=== PATIENT | female | born 1995 | race Caucasian/White ===

== ENCOUNTER 2018-04-11 11:29 | Inpatient (IN) | payer OTHER ==
[~2018-04-11] VITALS: Ht 160 cm; Wt 75.3 kg
[2018-04-11 12:02] VITALS: BP 117/67
[2018-04-11] MEDS ORDERED: RINGERS SOLUTION,LACTATED 1,000 ML IV PRN (12:16)
[2018-04-11] MEDS ORDERED: RINGERS SOLUTION,LACTATED 1,000 ML IV SCH (12:16)
[2018-04-11] MEDS ORDERED: OXYTOCIN 30 UNITS/LACT RINGERS 500 ML IV PRN (12:16)
[2018-04-11] MEDS ORDERED: CITRIC ACID/SODIUM CITRATE 30 ML SOLUTION UDCUP PO PRN (12:30)
[2018-04-11] MEDS ORDERED: METOCLOPRAMIDE HCL 5 MG/ML 2 ML VIAL IVP PRN (12:30)
[2018-04-11] MEDS ORDERED: FentaNYL CITRATE-PF 100 MCG/2 ML VIAL IVP PRN (12:30)
[2018-04-11 12:59] LABS: BASOPHILS % (AUTO) 0.3 % (0.0-2.0); EOSINOPHILS % (AUTO) 0.3 % (1.0-6.0); HEMATOCRIT 30.9 % (36-46); HEMOGLOBIN 10.5 g/dL (12.0-16.0); LYMPHOCYTES # (AUTO) 1.9 K/uL (1.0-4.8); LYMPHOCYTES % (AUTO) 18.9 % (22.0-44.0); MEAN CORPUSCULAR HEMOGLOBIN 29.3 pg (26.0-34.0); MEAN CORPUSCULAR HGB CONC 33.9 G/dL (31.0-37.0); MEAN CORPUSCULAR VOLUME 87 fL (80-100); MONOCYTES # (AUTO) 0.7 K/uL (0.1-1.0); MONOCYTES % (AUTO) 6.9 % (2.0-9.0); NEUTROPHILS # (AUTO) 7.5 K/uL (1.8-7.7); NEUTROPHILS % (AUTO) 73.6 % (40.0-70.0); PLATELET COUNT (AUTO)-OB 232 K/uL (150-450); RED BLOOD CELL COUNT(AUTO) 3.57 MIL/uL (4.00-5.20); RED CELL DISTRIBUTION WIDTH 13.8 % (11.5-14.5)
[2018-04-11] MEDS ORDERED: ROPIVACAINE HCL/PF 0.2% 100 ML ED ONE (15:11)
[2018-04-11] MEDS ORDERED: ROPIVACAINE HCL/PF 0.2% 100 ML ED PRN (15:49)
[2018-04-11] MEDS ORDERED: ONDANSETRON HCL 4 MG/2 ML VIAL IVP PRN (16:00)
[2018-04-11] MEDS ORDERED: DiphenhydrAMINE HCL 50 MG/ML VIAL IVP PRN (16:00)
[2018-04-11] MEDS ORDERED: OXYGEN THERAPY IH SCH (20:00)
[2018-04-11] MEDS ORDERED: RINGERS SOLUTION,LACTATED 1,000 ML IV ONE (21:54)
[2018-04-11] MEDS ORDERED: OxyCODONE HCL/ACETAMINOPHEN 5-325 MG TABLET PO PRN ×2 (22:00)
[2018-04-11] MEDS ORDERED: GLYCERIN/WITCH HAZEL LEAF 40 PADS JAR TP PRN (22:00)
[2018-04-11] MEDS ORDERED: MEASLES/MUMPS/RUBELLA VACCINE, LIVE 0.5 ML/VIAL SQ ONE (22:00)
[2018-04-11] MEDS ORDERED: LANOLIN 7 GM OINTMENT TP PRN (22:00)
[2018-04-11] MEDS: BENZOCAINE 20%/MENTHOL 56 GM SPRAY CANISTER TP PRN ×2 (23:56→23:57)
[2018-04-11] MEDS: IBUPROFEN 600 MG TABLET PO PRN (23:58)
[2018-04-12 06:15] LABS: BASOPHILS % (AUTO) 0.5 % (0.0-2.0); EOSINOPHILS % (AUTO) 0.1 % (1.0-6.0); HEMATOCRIT 28.5 % (36-46); HEMOGLOBIN 9.6 g/dL (12.0-16.0); LYMPHOCYTES # (AUTO) 3.1 K/uL (1.0-4.8); LYMPHOCYTES % (AUTO) 22.7 % (22.0-44.0); MEAN CORPUSCULAR HEMOGLOBIN 29.2 pg (26.0-34.0); MEAN CORPUSCULAR HGB CONC 33.7 G/dL (31.0-37.0); MEAN CORPUSCULAR VOLUME 87 fL (80-100); MONOCYTES % (AUTO) 7.5 % (2.0-9.0); NEUTROPHILS # (AUTO) 9.6 K/uL (1.8-7.7); NEUTROPHILS % (AUTO) 69.2 % (40.0-70.0); PLATELET COUNT (AUTO)-OB 202 K/uL (150-450); RED BLOOD CELL COUNT(AUTO) 3.29 MIL/uL (4.00-5.20); RED CELL DISTRIBUTION WIDTH 13.7 % (11.5-14.5)
[2018-04-12] MEDS ORDERED: MAGNESIUM HYDROXIDE SUSPENSION 30 ML UDCUP PO SCH (09:00)
[2018-04-12] MEDS: IBUPROFEN 600 MG TABLET PO PRN (09:17)
[2018-04-12] MEDS ORDERED: IBUP-2071 PO (11:09)
[2018-04-12] MEDS ORDERED: DSS100 PO (11:10)
[2018-04-12] MEDS ORDERED: FERR-89 PO (11:10)
== END 2018-04-12 18:10 | disposition home or self-care (01) | DRG 775 ==
LOC: 4S 11:29 → OBSVTOIN 11:29
PROVIDERS: ADMIT Obstetrics & Gynecology; ATTEND Obstetrics & Gynecology
PROC: 10E0XZZ Delivery of Products of Conception, External Approach (ICD-10-PCS; principal; 2018-04-11)
PROC: 3E0R3BZ Introduction of Anesthetic Agent into Spinal Canal, Percutaneous Approach (ICD-10-PCS; 2018-04-11)
PROC: 00HU33Z Insertion of Infusion Device into Spinal Canal, Percutaneous Approach (ICD-10-PCS; 2018-04-11)
PROC: 10907ZC Drainage of Amniotic Fluid, Therapeutic from Products of Conception, Via Natural or Artificial Opening (ICD-10-PCS; 2018-04-11)
DX: O80 Encounter for full-term uncomplicated delivery (principal); Z37.0 Single live birth; Z3A.40 40 weeks gestation of pregnancy
CPT/HCPCS: J2590; J2795; J7120